=== PATIENT | female | born 1945 | race Caucasian/White ===

== ENCOUNTER 2021-11-03 15:07 | Inpatient (IN) | payer MEDICARE, OTHER ==
[~2021-11-03] VITALS: Ht 165.1 cm; Wt 90.1 kg
[~2021-11-03 15:07] MED LIST: ASPI1TAB20 PO; BACL-63 PO; CLOP75TA28 PO; GABA300C10 PO; HYDR12.56 PO; INSUINJ37 SUBCUT; LISI-716 PO; THYR60TA PO; TRAM-297 PO
[2021-11-03] MEDS ORDERED: SODIUM CHLORIDE 0.9% 500 ML IV ONE (16:15)
[2021-11-03] MEDS: DOPamine 1600MCG/ML D5W 250 ML IV SCH (16:49)
[2021-11-03 16:56] LABS: Basophils # (auto) 0.2 10 ^3/uL (0-0.2); Basophils % (auto) 2.8 % (0.0-2.0); Eosinophils # (auto) 0.1 10 ^3/uL (0-0.8); Hematocrit 38.8 % (36.0-46.0); Hemoglobin 12.9 g/dL (12.2-16.2); Lymphocytes # (auto) 1.1 10 ^3/uL (0.4-5.4); Lymphocytes % (auto) 17.6 % (10.0-50.0); Mean Corpuscular Hemoglobin 31.3 pg (28.0-32.0); Mean Corpuscular Hgb Conc. 33.2 g/dL (32.0-36.0); Mean Corpuscular Volume 94.3 fL (80.0-100.0); Monocytes # (auto) 0.4 10 ^3/uL (0-1.3); Monocytes % (auto) 6.1 % (0.0-12.0); Neutrophils # (auto) 4.7 10 ^3/uL (1.6-8.6); Neutrophils % (auto) 72.5 % (37.0-80.0); Nucleated Red Blood Cells % 0.1 %; Red Blood Cells 4.11 10^6/uL (4.0-5.20); Red Cell Distribution Width 12.9 % (11.8-14.3); White Blood Cell 6.5 10^3/uL (4.4-10.8)
[2021-11-03 17:09] LABS: INR 1.07 (0.9-1.15); Partial Thromboplastin Time 25.4 sec (23.6-33.0)
[2021-11-03 17:10] LABS: Albumin 3.8 g/dL (3.4-5.0); BUN/Creatinine Ratio 33.9; Calcium 9.5 mg/dL (8.5-10.1); Magnesium 2.7 mg/dL (1.6-2.6); Potassium 3.9 mmol/L (3.5-5.1)
[2021-11-03 17:12] LABS: Bilirubin, Total 0.5 mg/dL (0.2-1.0); Total Protein 7.4 g/dL (6.4-8.2)
[2021-11-03 18:11] LABS: Lactic Acid w/Reflex 3.1 mmol/L (0.4-2.0)
[2021-11-03] MEDS ORDERED: ONDANSETRON HCL 4 MG/2 ML VIAL IV ONE (19:00)
[2021-11-03 20:16] LABS: Urine Bacteria NONE SEEN /hpf (None Seen); Urine Blood Negative /uL (Negative); Urine Hyaline Cast FEW /lpf (0 - 2); Urine Specific Gravity 1.007 (1.001-1.035); Urine WBC 1 /hpf (0 - 5)
[2021-11-03] MEDS ORDERED: DEXTROSE (50%) 50ML SYRG IV PRN (21:30)
[2021-11-03] MEDS ORDERED: NITROGLYCERIN 0.4 MG SL TAB SL PRN (21:30)
[2021-11-03] MEDS ORDERED: MORPHINE SULFATE INJ 2 MG/ml SYRG IV PRN (21:30)
[2021-11-03] MEDS: SODIUM CHLORIDE 0.9% 1,000 ML IV SCH (21:49)
[2021-11-04] MEDS: ACCU-CHEK COMFORT CURVE STRIP VI SCH ×5 (00:22→23:00)
[2021-11-04] MEDS: InsuLIN REG 1unit/0.01ml Soln (100units/ml) SC SCH ×4 (00:24→17:13)
[2021-11-04] MEDS: ONDANSETRON HCL 4 MG/2 ML VIAL IV PRN ×2 (02:09→06:38)
[2021-11-04] MEDS: DOPamine 1600MCG/ML D5W 250 ML IV SCH ×2 (04:55→17:54)
[2021-11-04 06:49] LABS: Basophils # (auto) 0 10 ^3/uL (0-0.2); Basophils % (auto) 0.6 % (0.0-2.0); Eosinophils # (auto) 0 10 ^3/uL (0-0.8); Eosinophils % (auto) 0.2 % (0.0-7.0); Hemoglobin 14.1 g/dL (12.2-16.2); Lymphocytes # (auto) 1.1 10 ^3/uL (0.4-5.4); Lymphocytes % (auto) 12.3 % (10.0-50.0); Mean Corpuscular Hemoglobin 32.6 pg (28.0-32.0); Mean Corpuscular Hgb Conc. 34.4 g/dL (32.0-36.0); Mean Corpuscular Volume 94.8 fL (80.0-100.0); Monocytes # (auto) 0.7 10 ^3/uL (0-1.3); Monocytes % (auto) 8.3 % (0.0-12.0); Neutrophils # (auto) 6.9 10 ^3/uL (1.6-8.6); Neutrophils % (auto) 78.6 % (37.0-80.0); Nucleated Red Blood Cells % 0.1 %; Red Blood Cells 4.33 10^6/uL (4.0-5.20); Red Cell Distribution Width 12.8 % (11.8-14.3); White Blood Cell 8.7 10^3/uL (4.4-10.8)
[2021-11-04 07:09] LABS: Potassium 4.3 mmol/L (3.5-5.1)
[2021-11-04 07:10] LABS: Albumin 4.1 g/dL (3.4-5.0); BUN/Creatinine Ratio 30.3; Calcium 9.2 mg/dL (8.5-10.1)
[2021-11-04 07:12] LABS: Bilirubin, Total 0.6 mg/dL (0.2-1.0); Total Protein 7.9 g/dL (6.4-8.2)
[2021-11-04] MEDS ORDERED: DEXTROSE (50%) 50ML SYRG IV PRN (08:30)
[2021-11-04] MEDS: INSULIN LANTUS (GLARGINE) 1 /0.01ml (100units/ml) SC SCH (09:55)
[2021-11-04] MEDS ORDERED: PROMETHAZINE HCL 25 MG/ML 1ML IV PRN (11:15)
[2021-11-04] MEDS: SODIUM CHLORIDE 0.9% 1,000 ML IV SCH (11:20)
[2021-11-04] MEDS: PANTOPRAZOLE 40 MG TAB PO SCH (11:56)
[2021-11-05] MEDS: InsuLIN REG 1unit/0.01ml Soln (100units/ml) SC SCH ×5 (00:04→22:10)
[2021-11-05] MEDS: INSULIN LANTUS (GLARGINE) 1 /0.01ml (100units/ml) SC SCH ×3 (00:05→22:11)
[2021-11-05] MEDS: SODIUM CHLORIDE 0.9% 1,000 ML IV SCH ×3 (00:10→15:28)
[2021-11-05] MEDS: DOPamine 1600MCG/ML D5W 250 ML IV SCH ×2 (03:00→14:21)
[2021-11-05 03:32] LABS: Hematocrit 45.1 % (36.0-46.0); Hemoglobin 14.9 g/dL (12.2-16.2)
[2021-11-05] MEDS: ACCU-CHEK COMFORT CURVE STRIP VI SCH ×4 (08:33→22:06)
[2021-11-05] MEDS: PANTOPRAZOLE 40 MG TAB PO SCH (10:00)
[2021-11-05] MEDS ORDERED: AMIO200T33 PO (12:16)
[2021-11-05 14:00] LABS: Calcium 9.3 mg/dL (8.5-10.1); Potassium 3.7 mmol/L (3.5-5.1)
[2021-11-05 14:02] LABS: BUN/Creatinine Ratio 28.4
[2021-11-06] VITALS (32 sets, daily range): BP systolic 109–173; BP diastolic 37–62
[2021-11-06] MEDS: SODIUM CHLORIDE 0.9% 1,000 ML IV SCH (02:57)
[2021-11-06] MEDS: DOPamine 1600MCG/ML D5W 250 ML IV SCH ×2 (03:01→17:00)
[2021-11-06] MEDS: ACCU-CHEK COMFORT CURVE STRIP VI SCH ×4 (06:52→22:03)
[2021-11-06] MEDS: InsuLIN REG 1unit/0.01ml Soln (100units/ml) SC SCH ×4 (06:56→22:05)
[2021-11-06 09:14] LABS: Basophils # (auto) 0.1 10 ^3/uL (0-0.2); Basophils % (auto) 0.9 % (0.0-2.0); Eosinophils # (auto) 0.1 10 ^3/uL (0-0.8); Eosinophils % (auto) 1.9 % (0.0-7.0); Hematocrit 44.1 % (36.0-46.0); Hemoglobin 14.6 g/dL (12.2-16.2); Lymphocytes % (auto) 13.9 % (10.0-50.0); Mean Corpuscular Hemoglobin 31.8 pg (28.0-32.0); Mean Corpuscular Volume 96.2 fL (80.0-100.0); Monocytes # (auto) 0.7 10 ^3/uL (0-1.3); Neutrophils # (auto) 5.5 10 ^3/uL (1.6-8.6); Neutrophils % (auto) 74.3 % (37.0-80.0); Nucleated Red Blood Cells % 0.1 %; Red Blood Cells 4.58 10^6/uL (4.0-5.20); Red Cell Distribution Width 13.1 % (11.8-14.3); White Blood Cell 7.4 10^3/uL (4.4-10.8)
[2021-11-06 09:23] LABS: BUN/Creatinine Ratio 27.1; Magnesium 2.9 mg/dL (1.6-2.6); Potassium 3.8 mmol/L (3.5-5.1)
[2021-11-06] MEDS: PANTOPRAZOLE 40 MG TAB PO SCH (11:14)
[2021-11-06] MEDS: INSULIN LANTUS (GLARGINE) 1 /0.01ml (100units/ml) SC SCH ×2 (11:15→22:04)
[2021-11-06] MEDS ORDERED: HYDROcodone-ACET 5/325MG TAB PO PRN (16:45)
[2021-11-07] VITALS (78 sets, daily range): BP systolic 108–186; BP diastolic 28–70
[2021-11-07] MEDS: ACETAMINOPHEN 500 MG TAB PO PRN ×3 (02:10→17:28)
[2021-11-07 04:13] LABS: Basophils # (auto) 0.1 10 ^3/uL (0-0.2); Basophils % (auto) 0.9 % (0.0-2.0); Eosinophils # (auto) 0.3 10 ^3/uL (0-0.8); Eosinophils % (auto) 3.9 % (0.0-7.0); Hematocrit 41.2 % (36.0-46.0); Hemoglobin 13.9 g/dL (12.2-16.2); Lymphocytes # (auto) 1.9 10 ^3/uL (0.4-5.4); Lymphocytes % (auto) 27.4 % (10.0-50.0); Mean Corpuscular Hemoglobin 31.6 pg (28.0-32.0); Mean Corpuscular Hgb Conc. 33.6 g/dL (32.0-36.0); Mean Corpuscular Volume 93.8 fL (80.0-100.0); Monocytes # (auto) 0.7 10 ^3/uL (0-1.3); Monocytes % (auto) 10.4 % (0.0-12.0); Neutrophils # (auto) 3.9 10 ^3/uL (1.6-8.6); Neutrophils % (auto) 57.4 % (37.0-80.0); Nucleated Red Blood Cells % 0.1 %; Red Blood Cells 4.39 10^6/uL (4.0-5.20); Red Cell Distribution Width 12.6 % (11.8-14.3); White Blood Cell 6.9 10^3/uL (4.4-10.8)
[2021-11-07 04:23] LABS: BUN/Creatinine Ratio 23.9; Calcium 8.6 mg/dL (8.5-10.1); Magnesium 2.3 mg/dL (1.6-2.6); Potassium 3.8 mmol/L (3.5-5.1)
[2021-11-07] MEDS: ACCU-CHEK COMFORT CURVE STRIP VI SCH ×4 (05:13→21:17)
[2021-11-07] MEDS: SODIUM CHLORIDE 0.9% 1,000 ML IV SCH (05:13)
[2021-11-07] MEDS: InsuLIN REG 1unit/0.01ml Soln (100units/ml) SC SCH ×4 (05:44→21:16)
[2021-11-07] MEDS: DOPamine 1600MCG/ML D5W 250 ML IV SCH ×2 (06:18→22:11)
[2021-11-07] MEDS: PANTOPRAZOLE 40 MG TAB PO SCH (10:25)
[2021-11-07] MEDS: INSULIN LANTUS (GLARGINE) 1 /0.01ml (100units/ml) SC SCH ×2 (11:23→21:17)
[2021-11-07] MEDS ORDERED: LOPERAMIDE HCL 2 MG CAP/TAB PO PRN (11:45)
[2021-11-07] MEDS: GABAPENTIN 300 MG CAP PO SCH (21:07)
[2021-11-07] MEDS: BACLOFEN 10 MG TAB PO PRN (22:10)
[2021-11-08] VITALS (57 sets, daily range): BP systolic 106–154; BP diastolic 27–50
[2021-11-08] MEDS: ACETAMINOPHEN 500 MG TAB PO PRN (01:31)
[2021-11-08 04:53] LABS: BUN/Creatinine Ratio 19.8; Calcium 8.3 mg/dL (8.5-10.1); Magnesium 2.3 mg/dL (1.6-2.6); Potassium 3.8 mmol/L (3.5-5.1)
[2021-11-08] MEDS: GABAPENTIN 300 MG CAP PO SCH ×3 (06:13→20:42)
[2021-11-08] MEDS: ACCU-CHEK COMFORT CURVE STRIP VI SCH ×4 (06:17→20:40)
[2021-11-08] MEDS: InsuLIN REG 1unit/0.01ml Soln (100units/ml) SC SCH ×4 (06:18→20:41)
[2021-11-08] MEDS: PANTOPRAZOLE 40 MG TAB PO SCH (09:25)
[2021-11-08] MEDS: INSULIN LANTUS (GLARGINE) 1 /0.01ml (100units/ml) SC SCH ×2 (09:26→20:41)
[2021-11-08] MEDS: DOPamine 1600MCG/ML D5W 250 ML IV SCH (15:17)
[2021-11-08] MEDS: CHOLESTYRAMINE 4 GM POWDER PO SCH ×3 (15:56→22:00)
[2021-11-09] VITALS (21 sets, daily range): BP systolic 116–159; BP diastolic 31–57
[2021-11-09 04:11] LABS: Basophils # (auto) 0.1 10 ^3/uL (0-0.2); Eosinophils # (auto) 0.2 10 ^3/uL (0-0.8); Eosinophils % (auto) 3.4 % (0.0-7.0); Hematocrit 36.7 % (36.0-46.0); Hemoglobin 12.3 g/dL (12.2-16.2); Lymphocytes # (auto) 1.6 10 ^3/uL (0.4-5.4); Lymphocytes % (auto) 23.5 % (10.0-50.0); Mean Corpuscular Hemoglobin 31.5 pg (28.0-32.0); Mean Corpuscular Hgb Conc. 33.5 g/dL (32.0-36.0); Mean Corpuscular Volume 94.1 fL (80.0-100.0); Monocytes # (auto) 0.5 10 ^3/uL (0-1.3); Monocytes % (auto) 7.6 % (0.0-12.0); Neutrophils # (auto) 4.4 10 ^3/uL (1.6-8.6); Neutrophils % (auto) 64.5 % (37.0-80.0); Red Blood Cells 3.89 10^6/uL (4.0-5.20); Red Cell Distribution Width 12.6 % (11.8-14.3); White Blood Cell 6.8 10^3/uL (4.4-10.8)
[2021-11-09 04:23] LABS: BUN/Creatinine Ratio 19.6; Calcium 8.5 mg/dL (8.5-10.1); Magnesium 2.3 mg/dL (1.6-2.6); Potassium 4.2 mmol/L (3.5-5.1)
[2021-11-09] MEDS: CHOLESTYRAMINE 4 GM POWDER PO SCH ×4 (06:00→22:00)
[2021-11-09] MEDS: ACCU-CHEK COMFORT CURVE STRIP VI SCH ×4 (06:50→22:07)
[2021-11-09] MEDS: GABAPENTIN 300 MG CAP PO SCH ×3 (06:50→22:04)
[2021-11-09] MEDS: InsuLIN REG 1unit/0.01ml Soln (100units/ml) SC SCH ×4 (06:51→22:05)
[2021-11-09] MEDS: DOPamine 1600MCG/ML D5W 250 ML IV SCH ×2 (08:36→14:12)
[2021-11-09] MEDS: INSULIN LANTUS (GLARGINE) 1 /0.01ml (100units/ml) SC SCH ×2 (11:07→22:06)
[2021-11-09] MEDS ORDERED: LEVO100T8 PO (11:41)
[2021-11-09] MEDS: BACLOFEN 10 MG TAB PO PRN (23:11)
[2021-11-10 05:00] VITALS: BP 135/40
[2021-11-10] MEDS: GABAPENTIN 300 MG CAP PO SCH ×3 (06:49→21:37)
[2021-11-10] MEDS: LEVOTHYROXINE SODIUM 100 MCG TAB PO SCH (06:49)
[2021-11-10] MEDS: CHOLESTYRAMINE 4 GM POWDER PO SCH ×4 (06:49→21:38)
[2021-11-10] MEDS: ACCU-CHEK COMFORT CURVE STRIP VI SCH ×4 (06:50→23:14)
[2021-11-10] MEDS: InsuLIN REG 1unit/0.01ml Soln (100units/ml) SC SCH ×4 (06:52→21:53)
[2021-11-10 08:00] VITALS: BP 109/49
[2021-11-10] MEDS: CLOPIDOGREL BISULFATE 75 MG TAB PO SCH (10:22)
[2021-11-10] MEDS: PANTOPRAZOLE 40 MG TAB PO SCH (10:23)
[2021-11-10] MEDS: INSULIN LANTUS (GLARGINE) 1 /0.01ml (100units/ml) SC SCH ×2 (10:28→21:53)
[2021-11-10 12:00] VITALS: BP 124/48
[2021-11-10 16:00] VITALS: BP 134/41
[2021-11-10] MEDS: BACLOFEN 10 MG TAB PO PRN (21:54)
[2021-11-10 22:00] VITALS: BP 134/40
[2021-11-11 05:00] VITALS: BP 134/39
[2021-11-11] MEDS: LEVOTHYROXINE SODIUM 100 MCG TAB PO SCH (06:09)
[2021-11-11] MEDS: CHOLESTYRAMINE 4 GM POWDER PO SCH ×4 (06:09→21:24)
[2021-11-11] MEDS: GABAPENTIN 300 MG CAP PO SCH ×3 (06:10→21:24)
[2021-11-11] MEDS: ACCU-CHEK COMFORT CURVE STRIP VI SCH ×4 (06:11→21:25)
[2021-11-11] MEDS: InsuLIN REG 1unit/0.01ml Soln (100units/ml) SC SCH ×4 (06:12→21:34)
[2021-11-11] MEDS: PANTOPRAZOLE 40 MG TAB PO SCH (09:37)
[2021-11-11] MEDS: CLOPIDOGREL BISULFATE 75 MG TAB PO SCH (09:37)
[2021-11-11] MEDS: INSULIN LANTUS (GLARGINE) 1 /0.01ml (100units/ml) SC SCH ×2 (09:44→21:34)
[2021-11-11 09:50] VITALS: BP 144/45
[2021-11-11 13:00] VITALS: BP 139/35
[2021-11-11 16:37] VITALS: BP 126/38
[2021-11-11] MEDS: APIXABAN 5 MG TAB PO SCH (21:24)
[2021-11-11] MEDS: BACLOFEN 10 MG TAB PO PRN (21:34)
[2021-11-11 22:00] VITALS: BP 126/40
[2021-11-12 05:00] VITALS: BP 183/92
[2021-11-12] MEDS: CHOLESTYRAMINE 4 GM POWDER PO SCH ×2 (06:00→11:48)
[2021-11-12 06:06] LABS: Potassium 3.8 mmol/L (3.5-5.1)
[2021-11-12] MEDS: GABAPENTIN 300 MG CAP PO SCH ×2 (06:11→15:31)
[2021-11-12 06:12] LABS: BUN/Creatinine Ratio 23.3; Magnesium 2.3 mg/dL (1.6-2.6)
[2021-11-12] MEDS: LEVOTHYROXINE SODIUM 100 MCG TAB PO SCH (06:12)
[2021-11-12] MEDS: ACCU-CHEK COMFORT CURVE STRIP VI SCH ×2 (06:12→11:48)
[2021-11-12] MEDS: InsuLIN REG 1unit/0.01ml Soln (100units/ml) SC SCH ×2 (06:12→11:49)
[2021-11-12 06:20] LABS: Hematocrit 35.5 % (36.0-46.0); Hemoglobin 11.9 g/dL (12.2-16.2); Mean Corpuscular Hemoglobin 31.3 pg (28.0-32.0); Mean Corpuscular Hgb Conc. 33.4 g/dL (32.0-36.0); Mean Corpuscular Volume 93.7 fL (80.0-100.0); Red Blood Cells 3.79 10^6/uL (4.0-5.20); Red Cell Distribution Width 12.5 % (11.8-14.3); White Blood Cell 6.9 10^3/uL (4.4-10.8)
[2021-11-12 06:25] LABS: Basophils % (manual) 0 (0.0-2.0); Blast Cells 0; Myelocytes % 0; Promyelocytes % 0; Reactive Lymphocytes 0
[2021-11-12 07:52] LABS: Band Neutrophils % (manual) 6; Eosinophils % (manual) 3 (0-7); Lymphocytes % (manual) 36 (10.0-50.0); Metamyelocytes % 2; Monocytes % (manual) 3 (0-12)
[2021-11-12 09:36] VITALS: BP 137/36
[2021-11-12] MEDS: APIXABAN 5 MG TAB PO SCH (09:43)
[2021-11-12] MEDS: PANTOPRAZOLE 40 MG TAB PO SCH (09:44)
[2021-11-12] MEDS: CLOPIDOGREL BISULFATE 75 MG TAB PO SCH (09:44)
[2021-11-12] MEDS: INSULIN LANTUS (GLARGINE) 1 /0.01ml (100units/ml) SC SCH (09:49)
[2021-11-12 13:20] VITALS: BP 138/24
[2021-11-12 15:20] VITALS: BP 145/48
[2021-11-12 17:10] VITALS: BP 145/48
== END 2021-11-12 16:25 | DRG 637 ==
LOC: ER 15:07 → EDBD 15:07 → TELE 21:24 → ICU WEST 11-06 11:48 → TELE-WESTW 11-09 22:27
PROVIDERS: ADMIT Nurse Practitioner; ATTEND Internal Medicine
DX: E11.65 Type 2 diabetes mellitus with hyperglycemia (principal); N17.0 Acute kidney failure with tubular necrosis; R00.1 Bradycardia, unspecified; E66.9 Obesity, unspecified; E78.5 Hyperlipidemia, unspecified; I10 Essential (primary) hypertension; I25.10 Atherosclerotic heart disease of native coronary artery without angina pectoris; E03.9 Hypothyroidism, unspecified; K52.9 Noninfective gastroenteritis and colitis, unspecified; Z20.822 Contact with and (suspected) exposure to COVID-19; I48.0 Paroxysmal atrial fibrillation; Z90.710 Acquired absence of both cervix and uterus; Z95.5 Presence of coronary angioplasty implant and graft; Z88.8 Allergy status to other drugs, medicaments and biological substances; I25.2 Old myocardial infarction; Z68.33 Body mass index [BMI] 33.0-33.9, adult
CPT/HCPCS: 36415; 70450; 71045; 80048; 80053; 81001; 82542; 82962; 83605; 83735; 83880; 84443; 84484; 85007; 85014; 85018; 85025; 85027; 85610; 85730; 87045; 87081; 87427; 87493; 93005; 93306; 96361; 96374; 97110; 97116; 97163; 97530; 99291; G0378; J1815; J2405